=== PATIENT | male | born 1995 | race Caucasian/White ===

== ENCOUNTER 2020-10-08 15:14 | Emergency (ER) | payer OTHER ==
[~2020-10-08] VITALS: Ht 175.3 cm; Wt 81.7 kg
[2020-10-08 16:54] VITALS: BP 108/74
== END 2020-10-08 16:57 | disposition home or self-care (01) ==
LOC: ER 15:14
DX: S63.418A Traumatic rupture of collateral ligament of other finger at metacarpophalangeal and interphalangeal joint, initial encounter (principal); J45.909 Unspecified asthma, uncomplicated; W21.09XA Struck by other hit or thrown ball, initial encounter; Y93.89 Activity, other specified; Y92.89 Other specified places as the place of occurrence of the external cause; Y99.8 Other external cause status

== ENCOUNTER 2020-10-11 11:28 | Emergency (ER) | payer OTHER ==
[~2020-10-11] VITALS: Ht 175.3 cm; Wt 81.7 kg
[2020-10-11 11:28] VITALS: BP 128/87
== END 2020-10-11 11:56 | disposition home or self-care (01) ==
LOC: ER 11:28
DX: M79.641 Pain in right hand (principal); J45.909 Unspecified asthma, uncomplicated